=== PATIENT | female | born 1955 | race Caucasian/White ===

== ENCOUNTER 2018-12-11 22:16 | Emergency (ER) | payer MEDICAID, OTHER ==
[2018-12-11] MEDS ORDERED: Sodium Chloride 0.9% 500 ML IV ONE (22:58)
[2018-12-11 23:33] LABS: BASO % 0.4 % (0.0-2.0); EOS # 0.1 K/uL (0.0-0.7); EOS % 1.6 % (0.0-4.0); HEMOGLOBIN 13.2 g/dL (11.0-16.0); LYMPH # 1.7 K/uL (1.0-4.3); LYMPH % 20.6 % (20.0-40.0); MEAN CELL VOLUME 92.6 fL (81.0-99.0); MEAN CORPUSCULAR HEMOGLOBIN 31.1 pg (27.0-31.0); MEAN CORPUSCULAR HGB CONC 33.7 g/dL (33.0-37.0); MEAN PLATELET VOLUME 11.2 fL (7.2-11.7); MONO # 0.5 K/uL (0.0-0.8); MONO % 5.9 % (0.0-10.0); NEUT # 5.8 K/uL (1.8-7.0); NEUT % 71.5 % (50.0-75.0); NRBC % 0.1 % (0.0-2.0); RBC 4.22 Mil/uL (3.80-5.20); RED CELL DISTRIBUTION WIDTH 13.3 % (11.5-14.5); WHITE BLOOD COUNT 8.1 K/uL (4.8-10.8)
[2018-12-11 23:45] LABS: ALB/GLOB RATIO 1.6 (1.0-2.1); ALBUMIN 4.3 g/dL (3.5-5.0); ALT/SGPT 29 U/L (9-52); AST/SGOT 21 U/L (14-36); BLOOD UREA NITROGEN 15 mg/dL (7-17); CALCIUM 9.3 mg/dl (8.6-10.4); GFR NON-AFRICAN AMERICAN > 60; LIPASE 119 U/L (23-300)
[2018-12-12] MEDS ORDERED: Iodixanol 320 MG/ML 100 ML BOTTLE IV ONE (00:01)
--- NOTE | 2018-12-12 00:10 | C.PDOC ---
History Of Present Illness 62 year old female presents to the ED c/o left periumbilical and LLQ abdominal pain that started today at 18:00 after eating. Patient also reports having multiple episodes of nausea and vomiting. Patient denies fever, chills, diarrhe a, dysuria, hematuria, rash, back pain, CP, SOB. Patient states she has never had this pain before. Time Seen by Provider: 12/11/18 22:30 Chief Complaint (Nursing): Abdominal Pain History Per: Patient History/Exam Limitations: no limitations Onset/Duration Of Symptoms: Hrs (18:00) Current Symptoms Are (Timing): Still Present Location Of Pain/Discomfort: LLQ, Periumbilical Radiation Of Pain To:: None Quality Of Discomfort: "Pain" Associated Symptoms: Nausea, Vomiting. denies: Diarrhea, Urinary Symptoms Recent travel outside of the [place]: No Additional History Per: Patient Abnormal Vaginal Bleeding: No Past Medical History Reviewed: Historical Data, Nursing Documentation, Vital Signs Vital Signs: Last Vital Signs Temp 97.8 F 12/11/18 22:27 Pulse 78 12/11/18 22:27 Resp 18 12/11/18 22:27 BP 193/88 H 12/11/18 22:27 Pulse Ox 97 12/11/18 22:27 Primary Care Provider: Non [facility] Provider, - Medical History PMH: HTN, Osteoporosis Denies: Chronic Kidney Disease Surgical History: No Surg Hx Family History: States: Unknown Family Hx - Social History Hx Alcohol Use: No Hx Substance Use: No - Immunization History Hx Tetanus Toxoid Vaccination: No Hx Influenza Vaccination: No Hx Pneumococcal Vaccination: No Review Of Systems Constitutional: Negative for: Fever, Chills Respiratory: Negative for: Cough, Shortness of Breath Gastrointestinal: Positive for: Nausea, Vomiting, Abdominal Pain Genitourinary: Negative for: Dysuria, Hematuria Musculoskeletal: Negative for: Back Pain Skin: Negative for: Rash Neurological: Negative for: Weakness, Numbness Physical Exam - Physical Exam Appears: Non-toxic, In Acute Distress Skin: Normal Color, Warm, Dry, No Rash Head: Atraumatic, Normacephalic Eye(s): bilateral: Normal Inspection Neck: Normal ROM, Supple Chest: Symmetrical Cardiovascular: Rhythm Regular Respiratory: Normal Breath Sounds, No Rales, No Rhonchi, No Wheezing Gastrointestinal/Abdominal: Soft, Tenderness (periumbilical and LLQ), No Guarding, No Rebound, Other (Negative McBurney's and Vasquez's) Back: No CVA Tenderness Extremity: Normal ROM, No Tenderness, No Swelling Neurological/Psych: Oriented x3, Normal Speech, Normal Cognition Gait: Steady ED Course And Treatment - Laboratory Results Result Diagrams: 12/11/18 23:30 12/11/18 23:30 Lab Results: Total Bilirubin 0.2 mg/dL (0.2-1.3) 12/11/18 23:30 AST 21 U/L (14-36) 12/11/18 23:30 ALT 29 U/L (9-52) 12/11/18 23:30 Alkaline Phosphatase 85 U/L (38-126) 12/11/18 23:30 Total Protein 6.9 g/dL (6.3-8.3) 12/11/18 23:30 Albumin 4.3 g/dL (3.5-5.0) 12/11/18 23:30 Globulin 2.7 gm/dL (2.2-3.9) 12/11/18 23:30 Albumin/Globulin Ratio 1.6 (1.0-2.1) 12/11/18 23:30 Lipase 119 U/L (23-300) 12/11/18 23:30 O2 Sat by Pulse Oximetry: 97 (ON RA) Pulse Ox Interpretation: Normal Progress Note: Plan: - CT abd/pelvis. - Labs. - IV fluids. - Toradol 30 mg IVP. - UA Disposition Counseled Patient/Family Regarding: Studies Performed, Diagnosis, Need For Fo llowup, Rx Given - Disposition Referrals: Non [facility] Provider, [Primary Care Provider] - [facility] [Outside] Disposition: HOME/ ROUTINE Disposition Time: 01:15 Condition: STABLE Additional Instructions: FOLLOW UP WITH YOUR DOCTOR IN 1-2 DAYS USE MEDICATIONS DIRECTED RETURN TO EMERGENCY ROOM IF SYMPTOMS WORSEN SEGUIR CON ARMSTRONG MDICO EN 1-2 QUICK UTILICE MEDICAMENTOS SHAQUILLE SE DIRIGE REGRESAR A LA GURWINDER DE EMERGENCIA SI LOS SNTOMAS SE SONG AUNIDO Prescriptions: Ciprofloxacin [Cipro] 1 tab PO BID #14 tab Dicyclomine [Bentyl] 20 mg PO Q6 PRN #12 tab PRN Reason: ABDOMINAL CRAMPING metroNIDAZOLE [Flagyl] 500 mg PO TID #21 tab Naproxen 375 mg PO BID PRN #20 tablet PRN Reason: pain Instructions: Acute Abdomen (Belly Pain), Adult (DC) Forms: [facility] (Setswana) Print Language: HAITIAN - Clinical Impression Clinical Impression: Enteritis, Abdominal pain - Scribe Statement The provider has reviewed the documentation as recorded by the Scribe Trae Bro All medical record entries made by the Scribe were at my direction and personally dictated by me. I have reviewed the chart and agree that the record accurately reflects my personal performance of the history, physical exam, medical decision making, and the department course for this patient. I have also personally directed, reviewed, and agree with the discharge instructions and disposition.
[2018-12-12 01:08] LABS: SQUAMOUS EPITHIAL < 1 /hpf (0-5); URINE BILIRUBIN NEGATIVE (NEGATIVE); URINE BLOOD NEGATIVE (NEGATIVE); URINE CLARITY Clear (Clear); URINE COLOR Straw (YELLOW); URINE GLUCOSE (UA) 1+ mg/dL (Normal); URINE LEUKOCYTE ESTERASE NEG Leu/uL (Negative); URINE PROTEIN NEGATIVE (NEGATIVE); URINE UROBILINOGEN NORMAL mg/dL (0.2-1.0)
[2018-12-12 01:37] VITALS: BP 172/86; PULSE 76; RESP 16; TEMP 98; O2SAT 98
--- NOTE | 2018-12-12 13:18 | CT ---
Date of service: 12/12/2018 PROCEDURE: CT abdomen and pelvis HISTORY: LLQ PAIN R/O DIVERTICULITIS COMPARISON: None. TECHNIQUE: Contiguous axial images of the abdomen and pelvis performed following intravenous injection of approximately 100 cc Visipaque 320 contrast material. Additional 2D sagittal and coronal reformats generated. Radiation dose: Total exam DLP = 478.83 mGy-cm. This CT exam was performed using one or more of the following dose reduction techniques: Automated exposure control, adjustment of the mA and/or kV according to patient size, and/or use of iterative reconstruction technique. FINDINGS: LOWER THORAX: Mild passive/dependent type atelectasis both posterior lower lung yin. Heart size within range of normal. No significant pericardial effusion. There is a small hiatal hernia. LIVER: Liver exhibits normal size and attenuation pattern without mass collection or calcification. Portal and splenic veins opacified. GALLBLADDER AND BILE DUCTS: Gallbladder physiologically distended. No evidence of intraluminal gallbladder calculi. PANCREAS: Unremarkable. No mass. No ductal dilatation. SPLEEN: Small splenule ADRENALS: No adrenal lesions. KIDNEYS AND URETERS: Kidneys demonstrate relatively symmetric nephrograms.. Punctate nonobstructing calcification seen left upper-midpole collecting system left kidney.. BLADDER: Urinary bladder is physiologically distended. No evidence of intraluminal urinary bladder calculi. REPRODUCTIVE: Unremarkable as visualized APPENDIX: Normal appendix with no evidence of acute appendicitis BOWEL: Evaluation of the bowel is somewhat limited due to the lack of oral contrast material. Stomach is distended with food debris liquid and air. Visualized loops of small bowel exhibit normal contour and caliber. No evidence of acute mechanical small bowel obstruction however note made of a few prominent fluid-filled loops of small bowel in the left mid to lower abdomen possibly secondary to mild ileus. Developing enteritis cannot be excluded. There is a moderate amount of stool seen throughout the cecum and ascending as well as proximal 2/3 transverse colon. There is also moderate amount of stool in the distal sigmoid and rectum. Findings suggest mild constipation. PERITONEUM: Unremarkable. No fluid collection. No free air. Small fat containing umbilical hernia. LYMPH NODES: Unremarkable. No enlarged lymph nodes. VASCULATURE: Unremarkable. No aortic aneurysm. No aortic atherosclerotic calcification or mural plaque present. BONES: Mild multilevel degenerative spondylosis of the lower thoracic and lumbar spine. OTHER FINDINGS: None. IMPRESSION: There are a few prominent fluid-filled loops small bowel left mid to lower abdomen possibly secondary to a ileus however developing enteritis cannot be excluded. Moderate amount of stool seen throughout the right and most of the transverse colon as well as the distal sigmoid and rectum consistent with mild fecal retention/constipation. Punctate nonobstructing calcification upper/midpole left kidney
== END 2018-12-12 01:37 | disposition home or self-care (01) ==
LOC: SUPCPDRO 22:16 → C.ER 22:16
DX: K52.9 Noninfective gastroenteritis and colitis, unspecified (principal); R10.33 Periumbilical pain
CPT/HCPCS: 74177; 80053; 81001; 83690; 85025; 96361; 96374; 99284; J1885; J7040; Q9967